=== PATIENT | male | born 1970 | race Caucasian/White ===

== ENCOUNTER 2023-08-28 09:49 | Emergency (ER) | payer OTHER ==
[~2023-08-28] VITALS: Ht 188 cm; Wt 99.3 kg
[2023-08-28] MEDS ORDERED: DOXYCYCLINE HY100 MG PO (10:09)
[2023-08-28] MEDS ORDERED: TRAMADOL HCL50 MG PO (10:10)
[2023-08-28] MEDS ORDERED: ANUSOL-HC30 GM (10:11)
[2023-08-28 11:46] LABS: BASOPHILS 0.3 % (0-2); EOSINOPHILS 0.7 % (0-6); HEMOGLOBIN 15.4 g/dL (12.0-18.0); LYMPHOCYTES 14.6 % (24-44); MCH 30.6 (27-36); MCHC 34.2 g/dl (30-36); MCV 89.7 fl (81-99); MONOCYTES 4.2 % (0-12); NEUTROPHILS 80.2 % (39-80); PLATELET COUNT 482 K/uL (140-440); RBC 5.02 M/ul (4.3-5.7); RDW 14.4 (10.5-15.0)
[2023-08-28 12:02] LABS: ALBUMIN 4.4 g/dL (3.4-5.0); ALBUMIN/GLOBULIN RATIO 1.22 (1.1-2.4); ANION GAP 17.6 (7-21); BILIRUBIN, TOTAL 0.8 ng/dL (0.2-1.0); BUN/CREATININE RATIO 16.49 (6.0-28.6); CALCIUM 9.1 mg/dL (8.5-10.1); CREATININE, SERUM 0.97 mg/dL (0.70-1.30); POTASSIUM 3.6 mmol/L (3.5-5.1)
--- OUTSIDE RECORDS SUMMARY | 2023-08-28 12:10 | XMS ---
PreManage Notification: ZENIA BOB [employer] Assistant Events No recent Security Events currently on file CRITERIA MET - [facility] - 2 Visits in 30 Days CARE PROVIDERS -Doni- Dentist: Thermograph Operator [facility] PHONE: [phone] HASMUKH, YASMINE [facility]: [facility] PHONE: Unknown CELIA VEGA [facility] Current PHONE: [phone] [place] has no Care Guidelines for this patient. E.Katheryn VISIT COUNT (12 MO.) [address] [place] [id number] [place] TOTAL 2 NOTE: Visits indicate total known visits. ED/UCC VISIT TRACKING (12 MO.) 08/28/2023 09:50 JOSHAU Levy OR TYPE: Emergency COMPLAINT: - RECTAL PAIN, HOT/COLD 08/26/2023 15:41 [facility] DONI DAY OR TYPE: Emergency INPATIENT VISIT TRACKING (12 MO.) No inpatient visits to display in this time frame [email or web address]
[2023-08-28] MEDS ORDERED: AMOX TR-K CLV1 EAC1 PO ×2 (15:29→15:30)
[2023-08-28] MEDS ORDERED: HYDROCODON-ACE1 EA10 PO (15:29)
[2023-08-28 15:43] VITALS: BP 130/94
== END 2023-08-28 15:45 | disposition home or self-care (01) ==
LOC: ED 09:49
PROVIDERS: Emergency Medicine
DX: K62.89 Other specified diseases of anus and rectum (principal); Z88.5 Allergy status to narcotic agent; Z88.8 Allergy status to other drugs, medicaments and biological substances
CPT/HCPCS: 36415; 74177; 80053; 85025; 99284-25; J2060; J7030; Q9967